=== PATIENT | female | born 1945 | race Caucasian/White ===

== ENCOUNTER → 2017-09-04 | Outpatient (CLI) | payer MEDICARE ==
[~2017-09-04] MED LIST: AMLODIPINE-BEN1 EAC1 PO; Aspirin EC81 MG PO; CEFP200 PO; DULO60 PO; GABA100 PO; HYDR1TAB94 PO; LISI5 PO; METO50 PO; Norco 5-325 Ta1 EACH PO; XARELTO20 MG PO; Zofran Odt4 MG SL
[2017-09-04 11:09] LABS: Anion Gap 6 mmol/L (6-16); Blood Urea Nitrogen 10 mg/dL (8-24); CO2, Blood 31 mmol/L (21-32); Chloride, Blood 104 mmol/L (98-108); Creatinine, Blood 0.77 mg/dL (0.40-1.00); Glomerular Filtration Rate >60 (60-); Glucose, Blood 109 mg/dL (70-99); Potassium, Blood 4.9 mmol/L (3.5-5.5); Sodium, Blood 141 mmol/L (136-145)
== END | disposition home or self-care (01) ==
LOC: LAB EV 10:58
PROVIDERS: Physician Assistant Medical
DX: I10 Essential (primary) hypertension (principal)
CPT/HCPCS: 80048

== ENCOUNTER 2018-05-17 18:53 | Emergency (ER) | payer MEDICARE ==
[~2018-05-17] VITALS: Ht 170.2 cm; Wt 112.5 kg
[~2018-05-17 18:53] MED LIST changes: -Aspirin EC81 MG PO; -GABA100 PO; -HYDR1TAB94 PO; -LISI5 PO; -METO50 PO; -XARELTO20 MG PO
[2018-05-17] MEDS ORDERED: GABA100 (20:20)
[2018-05-17 20:40] LABS: BASOPHILS ABSOLUTE AUTO 0.03 K/mm3 (0.00-0.23); BASOPHILS PERCENT AUTO 0 % (0-2); EOSINOPHILS ABSOLUTE AUTO 0.28 K/mm3 (0.00-0.68); EOSINOPHILS PERCENT AUTO 4 % (0-6); Hematocrit 43.3 % (33.0-51.0); Hemoglobin 14.1 g/dL (11.5-16.0); IMMATURE GRAN ABSOLUTE AUTO 0.02 K/mm3 (0.00-0.10); IMMATURE GRAN PERCENT AUTO 0 % (0-1); LYMPHOCYTES ABSOLUTE AUTO 3.24 K/mm3 (0.84-5.20); LYMPHOCYTES PERCENT AUTO 45 % (21-46); MONOCYTES ABSOLUTE AUTO 0.67 K/mm3 (0.16-1.47); MONOCYTES PERCENT AUTO 9 % (4-13); Mean Corpuscular HGB 27.5 pg (26.0-34.0); Mean Corpuscular HGB Conc 32.6 g/dL (31.5-36.5); Mean Corpuscular Volume 84 fL (80-100); NEUTROPHILS ABSOLUTE AUTO 3.03 K/mm3 (1.96-9.15); NEUTROPHILS PERCENT AUTO 42 % (41-73); RDW Coefficient Variation 14.4 % (11.7-14.2); RDW Standard Deviation 44.4 fL (35.1-46.3); Red Blood Cell Count 5.13 M/mm3 (3.80-5.20); White Blood Cell Count 7.27 K/mm3 (4.00-11.30)
[2018-05-17 20:43] LABS: Mean Platelet Volume 10.3 fL (9.1-12.4); Platelet Count 221 K/mm3 (150-400)
[2018-05-17 20:48] LABS: Alanine Aminotransfer (ALT/SGP 17 U/L (12-78); Albumin, Blood 3.3 g/dL (3.4-5.0); Albumin/Globulin Ratio 0.9 (0.8-1.8); Alk Phos 89 U/L (50-136); Anion Gap 9 mmol/L (6-16); Aspartate Aminotrans (AST/SGOT 17 U/L (12-37); Bilirubin, Total 0.3 mg/dL (0.1-1.0); Blood Urea Nitrogen 18 mg/dL (8-24); Bun/Creatinine Ratio 21.6 (12.0-20.0); CO2, Blood 26 mmol/L (21-32); Calcium, Blood 7.9 mg/dL (8.5-10.1); Chloride, Blood 108 mmol/L (98-108); Creatinine, Blood 0.83 mg/dL (0.40-1.00); Globulin, Blood 3.6 g/dL (2.2-4.0); Glomerular Filtration Rate >60 (60-); Glucose, Blood 104 mg/dL (70-99); Potassium, Blood 4.4 mmol/L (3.5-5.5); Sodium, Blood 143 mmol/L (136-145); Total Protein, Blood 6.9 g/dL (6.4-8.2)
[2018-05-17] MEDS ORDERED: HYDR1TAB94 PO (21:45)
[2018-05-17] MEDS ORDERED: Aspirin EC81 MG PO (21:45)
== END 2018-05-17 22:27 | disposition home or self-care (01) ==
LOC: ER 18:53
PROVIDERS: Emergency Medicine
DX: R47.01 Aphasia (principal); I10 Essential (primary) hypertension; E11.9 Type 2 diabetes mellitus without complications; Z79.899 Other long term (current) drug therapy
CPT/HCPCS: 36415; 70450; 80053; 81000; 85025; 93005; 93010; 96374; 96375; 99285-25; J2405; J3010

== ENCOUNTER 2018-05-26 02:25 | Observation (INO) | payer MEDICARE ==
[~2018-05-26] VITALS: Ht 170.2 cm; Wt 114.2 kg
[~2018-05-26 02:25] MED LIST changes: +Aspirin EC81 MG PO; +GABA100 PO; +HYDR1TAB94 PO
[2018-05-26] MEDS ORDERED: LISI5 PO (03:27)
[2018-05-26 04:42] LABS: BASOPHILS ABSOLUTE AUTO 0.04 K/mm3 (0.00-0.23); BASOPHILS PERCENT AUTO 1 % (0-2); EOSINOPHILS ABSOLUTE AUTO 0.26 K/mm3 (0.00-0.68); EOSINOPHILS PERCENT AUTO 3 % (0-6); Hematocrit 45.4 % (33.0-51.0); Hemoglobin 14.1 g/dL (11.5-16.0); IMMATURE GRAN ABSOLUTE AUTO 0.02 K/mm3 (0.00-0.10); IMMATURE GRAN PERCENT AUTO 0 % (0-1); LYMPHOCYTES ABSOLUTE AUTO 3.19 K/mm3 (0.84-5.20); LYMPHOCYTES PERCENT AUTO 42 % (21-46); MONOCYTES ABSOLUTE AUTO 0.75 K/mm3 (0.16-1.47); MONOCYTES PERCENT AUTO 10 % (4-13); Mean Corpuscular HGB 27.6 pg (26.0-34.0); Mean Corpuscular HGB Conc 31.1 g/dL (31.5-36.5); NEUTROPHILS ABSOLUTE AUTO 3.36 K/mm3 (1.96-9.15); NEUTROPHILS PERCENT AUTO 44 % (41-73); RDW Coefficient Variation 14.2 % (11.7-14.2); RDW Standard Deviation 46.4 fL (35.1-46.3); Red Blood Cell Count 5.11 M/mm3 (3.80-5.20); White Blood Cell Count 7.62 K/mm3 (4.00-11.30)
[2018-05-26 04:44] LABS: Mean Corpuscular Volume 89 fL (80-100); Platelet Count 187 K/mm3 (150-400)
[2018-05-26 04:56] LABS: Source, Urine Clean Catch
[2018-05-26 05:14] LABS: Bilirubin, Urine Neg (Neg); Blood, Urine Neg (Neg); Glucose Qualitative, Urine Neg (Neg); Ketones, Urine Neg (Neg); Leukocyte Esterase, Urine Neg (Neg); Nitrite, Urine Neg (Neg); Protein, Urine Neg (Neg); Specific Gravity, Urine 1.005 (1.003-1.022); Urobilinogen, Urine NORM (Normal)
[2018-05-26 05:15] LABS: Alanine Aminotransfer (ALT/SGP 19 U/L (12-78); Albumin, Blood 3.7 g/dL (3.4-5.0); Alk Phos 85 U/L (50-136); Anion Gap 8 mmol/L (6-16); Aspartate Aminotrans (AST/SGOT 18 U/L (12-37); Bilirubin, Total 0.4 mg/dL (0.1-1.0); Blood Urea Nitrogen 15 mg/dL (8-24); Bun/Creatinine Ratio 22.5 (12.0-20.0); CO2, Blood 27 mmol/L (21-32); Calcium, Blood 8.8 mg/dL (8.5-10.1); Chloride, Blood 106 mmol/L (98-108); Creatinine, Blood 0.67 mg/dL (0.40-1.00); Globulin, Blood 3.7 g/dL (2.2-4.0); Glomerular Filtration Rate >60 (60-); Glucose, Blood 94 mg/dL (70-99); Potassium, Blood 4.3 mmol/L (3.5-5.5); Sodium, Blood 141 mmol/L (136-145); Total Protein, Blood 7.4 g/dL (6.4-8.2)
[2018-05-26 05:44] LABS: Appearance, Urine Clear (Clear); Color, Urine Yellow (P-Yellow)
[2018-05-26 08:28] LABS: Free Thyroxine 1.12 ng/dL (0.70-1.60)
[2018-05-26 08:30] LABS: Thyroid Stimulating Hormone 4.27 uIU/mL (0.360-4.800); Triiodothyronine, Free 3.15 pg/mL (2.18-3.98)
[2018-05-27 04:39] LABS: Hematocrit 42.1 % (33.0-51.0); Hemoglobin 13.4 g/dL (11.5-16.0); Mean Corpuscular HGB 27.5 pg (26.0-34.0); Mean Corpuscular HGB Conc 31.8 g/dL (31.5-36.5); Mean Platelet Volume 10.2 fL (9.1-12.4); Platelet Count 227 K/mm3 (150-400); RDW Coefficient Variation 14.7 % (11.7-14.2); RDW Standard Deviation 46.9 fL (35.1-46.3); Red Blood Cell Count 4.87 M/mm3 (3.80-5.20); White Blood Cell Count 7.49 K/mm3 (4.00-11.30)
[2018-05-27 04:42] LABS: Mean Corpuscular Volume 86 fL (80-100)
[2018-05-27 04:58] LABS: Alanine Aminotransfer (ALT/SGP 15 U/L (12-78); Albumin, Blood 2.9 g/dL (3.4-5.0); Albumin/Globulin Ratio 0.9 (0.8-1.8); Alk Phos 75 U/L (50-136); Anion Gap 7 mmol/L (6-16); Aspartate Aminotrans (AST/SGOT 10 U/L (12-37); Bilirubin, Total 0.4 mg/dL (0.1-1.0); Blood Urea Nitrogen 18 mg/dL (8-24); Bun/Creatinine Ratio 21.5 (12.0-20.0); CHOL/HDL RATIO 2.5; CO2, Blood 28 mmol/L (21-32); Calcium, Blood 8.1 mg/dL (8.5-10.1); Chloride, Blood 108 mmol/L (98-108); Cholesterol 186 mg/dL (50-200); Creatinine, Blood 0.84 mg/dL (0.40-1.00); Globulin, Blood 3.1 g/dL (2.2-4.0); Glomerular Filtration Rate >60 (60-); Glucose, Blood 101 mg/dL (70-99); HDL Cholesterol 73 mg/dL (>39); LDL/HDL RATIO 1.4; Low Density Lipoprotein Chol 99 mg/dL (0-110); Potassium, Blood 4.1 mmol/L (3.5-5.5); Sodium, Blood 143 mmol/L (136-145); Triglycerides 68 mg/dL (30-160); Very Low Density Lipoprot Chol 13 mg/dL (6-32)
[2018-05-27] MEDS ORDERED: METO50 PO (10:09)
[2018-05-27] MEDS ORDERED: XARELTO20 MG PO (10:09)
== END 2018-05-27 10:47 | disposition home or self-care (01) ==
LOC: ER 02:25 → PCU 02:26
PROVIDERS: Emergency Medicine; Family Medicine; Internal Medicine
DX: I16.1 Hypertensive emergency (principal); I63.9 Cerebral infarction, unspecified; E11.9 Type 2 diabetes mellitus without complications; I10 Essential (primary) hypertension; I48.91 Unspecified atrial fibrillation; E66.9 Obesity, unspecified; G47.33 Obstructive sleep apnea (adult) (pediatric); Z79.02 Long term (current) use of antithrombotics/antiplatelets; Z79.82 Long term (current) use of aspirin; Z99.89 Dependence on other enabling machines and devices
CPT/HCPCS: 36415; 70551; 80053; 80061; 81003; 84439; 84443; 84481; 85025; 85027; 93005; 93010; 93306; 93880; 96372; 96374; 96375; 96376; 99284-25; G0378; J0360; J1650; J2060; J2405

== ENCOUNTER 2019-02-26 02:40 | Emergency (ER) | payer MEDICARE, OTHER ==
[~2019-02-26] VITALS: Ht 170.2 cm; Wt 117.9 kg
[~2019-02-26 02:40] MED LIST changes: +LISI5 PO; +METO50 PO; +XARELTO20 MG PO
[2019-02-26] MEDS ORDERED: WARF2.5 PO (03:03)
[2019-02-26] MEDS ORDERED: Coumadin5 MG PO (03:03)
[2019-02-26] MEDS ORDERED: ZESTORETIC 20-121 EA PO (03:04)
[2019-02-26 04:30] LABS: International Normalized Ratio 2.79; Prothrombin Time Results 26.9 Sec (9.7-11.5)
[2019-02-26] MEDS ORDERED: CEPH500 PO (04:35)
[2019-02-26] MEDS ORDERED: ERYT1OIN BOTHEYES (04:35)
== END 2019-02-26 04:50 | disposition home or self-care (01) ==
LOC: ER 02:40
PROVIDERS: Emergency Medicine
DX: A46 Erysipelas (principal); H10.9 Unspecified conjunctivitis; I10 Essential (primary) hypertension; E11.9 Type 2 diabetes mellitus without complications; Z79.899 Other long term (current) drug therapy
CPT/HCPCS: 36415; 85610; 99283

== ENCOUNTER → 2019-04-03 | Outpatient (CLI) | payer MEDICARE, OTHER ==
[~2019-04-03] MED LIST changes: +CEPH500 PO; +Coumadin5 MG PO; +ERYT1OIN BOTHEYES; +WARF2.5 PO; +ZESTORETIC 20-121 EA PO
== END | disposition home or self-care (01) ==
LOC: LAB SHORT 11:44 → LAB 11:44
DX: R35.0 Frequency of micturition (principal)
CPT/HCPCS: 87077; 87086; 87186

== ENCOUNTER 2020-05-05 18:20 | Emergency (ER) | payer MEDICARE ==
[~2020-05-05] VITALS: Ht 170.2 cm; Wt 117.9 kg
[2020-05-05 19:10] LABS: BASOPHILS ABSOLUTE AUTO 0.03 K/mm3 (0.00-0.23); BASOPHILS PERCENT AUTO 0 % (0-2); EOSINOPHILS ABSOLUTE AUTO 0.27 K/mm3 (0.00-0.68); EOSINOPHILS PERCENT AUTO 3 % (0-6); Hematocrit 45.2 % (33.0-51.0); Hemoglobin 14.3 g/dL (11.5-16.0); IMMATURE GRAN ABSOLUTE AUTO 0.03 K/mm3 (0.00-0.10); IMMATURE GRAN PERCENT AUTO 0 % (0-1); LYMPHOCYTES PERCENT AUTO 42 % (21-46); MONOCYTES ABSOLUTE AUTO 0.78 K/mm3 (0.16-1.47); MONOCYTES PERCENT AUTO 8 % (4-13); Mean Corpuscular HGB 27.6 pg (26.0-34.0); Mean Corpuscular HGB Conc 31.6 g/dL (31.5-36.5); Mean Corpuscular Volume 87 fL (80-100); Mean Platelet Volume 10.1 fL (9.1-12.4); NEUTROPHILS ABSOLUTE AUTO 4.26 K/mm3 (1.96-9.15); NEUTROPHILS PERCENT AUTO 46 % (41-73); Platelet Count 274 K/mm3 (150-400); RDW Coefficient Variation 13.7 % (11.7-14.2); RDW Standard Deviation 44.2 fL (35.1-46.3); Red Blood Cell Count 5.18 M/mm3 (3.80-5.20); White Blood Cell Count 9.27 K/mm3 (4.00-11.30)
[2020-05-05 19:23] LABS: Alanine Aminotransfer (ALT/SGP 22 U/L (12-78); Albumin, Blood 3.4 g/dL (3.4-5.0); Albumin/Globulin Ratio 0.9 (0.8-1.8); Alk Phos 95 U/L (50-136); Anion Gap 7 mmol/L (6-16); Aspartate Aminotrans (AST/SGOT 17 U/L (12-37); Bilirubin, Total 0.2 mg/dL (0.1-1.0); Blood Urea Nitrogen 14 mg/dL (8-24); Bun/Creatinine Ratio 18.7 (12.0-20.0); CO2, Blood 28 mmol/L (21-32); Calcium, Blood 8.9 mg/dL (8.5-10.1); Chloride, Blood 102 mmol/L (98-108); Creatinine, Blood 0.75 mg/dL (0.40-1.00); Globulin, Blood 3.9 g/dL (2.2-4.0); Glomerular Filtration Rate >60 (60-); Glucose, Blood 108 mg/dL (70-99); Potassium, Blood 4.1 mmol/L (3.5-5.5); Sodium, Blood 137 mmol/L (136-145); Total Protein, Blood 7.3 g/dL (6.4-8.2)
== END 2020-05-05 22:31 | disposition home or self-care (01) ==
LOC: ER 18:20
PROVIDERS: Emergency Medicine
DX: I10 Essential (primary) hypertension (principal); E11.9 Type 2 diabetes mellitus without complications; Z79.01 Long term (current) use of anticoagulants; Z79.899 Other long term (current) drug therapy; Z86.73 Personal history of transient ischemic attack (TIA), and cerebral infarction without residual deficits
CPT/HCPCS: 36415; 70450; 80053; 85025; 93005; 93010; 96374; 96375; 99285-25; A9270-GY; J2405

== ENCOUNTER 2022-05-19 08:52 | Emergency (ER) | payer MEDICARE ==
[~2022-05-19] VITALS: Ht 172.7 cm; Wt 113.4 kg
[2022-05-19 09:47] LABS: BASOPHILS ABSOLUTE AUTO 0.03 K/mm3 (0.00-0.23); BASOPHILS PERCENT AUTO 0 % (0-2); EOSINOPHILS ABSOLUTE AUTO 0.21 K/mm3 (0.00-0.68); EOSINOPHILS PERCENT AUTO 3 % (0-6); Hematocrit 45.1 % (33.0-51.0); Hemoglobin 14.6 g/dL (11.5-16.0); IMMATURE GRAN ABSOLUTE AUTO 0.03 K/mm3 (0.00-0.10); IMMATURE GRAN PERCENT AUTO 0 % (0-1); LYMPHOCYTES ABSOLUTE AUTO 2.76 K/mm3 (0.84-5.20); LYMPHOCYTES PERCENT AUTO 34 % (21-46); MONOCYTES ABSOLUTE AUTO 0.86 K/mm3 (0.16-1.47); MONOCYTES PERCENT AUTO 11 % (4-13); Mean Corpuscular HGB 28.7 pg (26.0-34.0); Mean Corpuscular HGB Conc 32.4 g/dL (31.5-36.5); Mean Corpuscular Volume 89 fL (80-100); Mean Platelet Volume 9.7 fL (9.1-12.4); NEUTROPHILS ABSOLUTE AUTO 4.32 K/mm3 (1.96-9.15); NEUTROPHILS PERCENT AUTO 53 % (41-73); Platelet Count 271 K/mm3 (150-400); RDW Coefficient Variation 13.7 % (11.7-14.2); RDW Standard Deviation 44.1 fL (35.1-46.3); Red Blood Cell Count 5.09 M/mm3 (3.80-5.20); White Blood Cell Count 8.21 K/mm3 (4.00-11.30)
[2022-05-19 10:01] LABS: Albumin, Blood 3.3 g/dL (3.4-5.0); Albumin/Globulin Ratio 0.8 (0.8-1.8); Bilirubin, Total 0.5 mg/dL (0.1-1.0); Bun/Creatinine Ratio 26.1 (12.0-20.0); Calcium, Blood 8.8 mg/dL (8.5-10.1); Creatinine, Blood 0.92 mg/dL (0.40-1.00); Globulin, Blood 3.9 g/dL (2.2-4.0); Potassium, Blood 4.4 mmol/L (3.5-5.5); Total Protein, Blood 7.2 g/dL (6.4-8.2)
[2022-05-19] MEDS ORDERED: LISI20 PO (10:38)
[2022-05-19 13:45] LABS: International Normalized Ratio 2.08; Prothrombin Time Results 20.8 Sec (9.7-11.5)
== END 2022-05-19 14:53 | disposition home or self-care (01) ==
LOC: ER 08:52
PROVIDERS: Emergency Medicine; Student in an Organized Health Care Education/Training Program
DX: R07.9 Chest pain, unspecified (principal); I10 Essential (primary) hypertension; E11.9 Type 2 diabetes mellitus without complications; Z79.899 Other long term (current) drug therapy; Z79.01 Long term (current) use of anticoagulants; Z86.73 Personal history of transient ischemic attack (TIA), and cerebral infarction without residual deficits
CPT/HCPCS: 36415; 71046; 80053; 84484; 85025; 85610; 93005; 93010; A9270; J3010

== ENCOUNTER → 2022-09-19 | Outpatient (CLI) | payer MEDICARE ==
[~2022-09-19] MED LIST changes: +LISI20 PO
[2022-09-19 13:30] LABS: BASOPHILS ABSOLUTE AUTO 0.02 K/mm3 (0.00-0.23); BASOPHILS PERCENT AUTO 0 % (0-2); EOSINOPHILS ABSOLUTE AUTO 0.15 K/mm3 (0.00-0.68); EOSINOPHILS PERCENT AUTO 2 % (0-6); Hematocrit 45.3 % (33.0-51.0); Hemoglobin 14.8 g/dL (11.5-16.0); IMMATURE GRAN ABSOLUTE AUTO 0.02 K/mm3 (0.00-0.10); IMMATURE GRAN PERCENT AUTO 0 % (0-1); LYMPHOCYTES PERCENT AUTO 26 % (21-46); MONOCYTES ABSOLUTE AUTO 0.74 K/mm3 (0.16-1.47); MONOCYTES PERCENT AUTO 10 % (4-13); Mean Corpuscular HGB 28.2 pg (26.0-34.0); Mean Corpuscular HGB Conc 32.7 g/dL (31.5-36.5); Mean Corpuscular Volume 86 fL (80-100); Mean Platelet Volume 10.4 fL (9.1-12.4); NEUTROPHILS ABSOLUTE AUTO 4.66 K/mm3 (1.96-9.15); NEUTROPHILS PERCENT AUTO 61 % (41-73); Platelet Count 244 K/mm3 (150-400); RDW Coefficient Variation 13.8 % (11.7-14.2); RDW Standard Deviation 44.1 fL (35.1-46.3); Red Blood Cell Count 5.25 M/mm3 (3.80-5.20); White Blood Cell Count 7.59 K/mm3 (4.00-11.30)
[2022-09-19 19:00] LABS: Albumin, Blood 3.1 g/dL (3.4-5.0); Albumin/Globulin Ratio 0.8 (0.8-1.8); Bilirubin, Total 0.2 mg/dL (0.1-1.0); Bun/Creatinine Ratio 19.9 (12.0-20.0); Calcium, Blood 8.3 mg/dL (8.5-10.1); Creatinine, Blood 0.86 mg/dL (0.40-1.00); Globulin, Blood 3.7 g/dL (2.2-4.0); Potassium, Blood 3.6 mmol/L (3.5-5.5); Total Protein, Blood 6.8 g/dL (6.4-8.2)
== END | disposition home or self-care (01) ==
LOC: LAB SHORT 10:40
PROVIDERS: Nurse Practitioner Family
DX: N19 Unspecified kidney failure (principal); R30.0 Dysuria; R10.9 Unspecified abdominal pain
CPT/HCPCS: 36415; 80053; 85025; 87086

== ENCOUNTER 2022-11-26 08:57 | Emergency (ER) | payer MEDICARE ==
[~2022-11-26] VITALS: Ht 167.6 cm; Wt 117.9 kg
[~2022-11-26 08:57] MED LIST changes: -Coumadin5 MG PO; +WARF5 PO
[2022-11-26 10:08] LABS: BASOPHILS ABSOLUTE AUTO 0.02 K/mm3 (0.00-0.23); BASOPHILS PERCENT AUTO 0 % (0-2); EOSINOPHILS ABSOLUTE AUTO 0.19 K/mm3 (0.00-0.68); EOSINOPHILS PERCENT AUTO 3 % (0-6); Hematocrit 44.5 % (33.0-51.0); IMMATURE GRAN ABSOLUTE AUTO 0.02 K/mm3 (0.00-0.10); IMMATURE GRAN PERCENT AUTO 0 % (0-1); LYMPHOCYTES ABSOLUTE AUTO 2.33 K/mm3 (0.84-5.20); LYMPHOCYTES PERCENT AUTO 38 % (21-46); MONOCYTES ABSOLUTE AUTO 0.66 K/mm3 (0.16-1.47); MONOCYTES PERCENT AUTO 11 % (4-13); Mean Corpuscular HGB 27.7 pg (26.0-34.0); Mean Corpuscular HGB Conc 31.5 g/dL (31.5-36.5); Mean Corpuscular Volume 88 fL (80-100); Mean Platelet Volume 9.9 fL (9.1-12.4); NEUTROPHILS ABSOLUTE AUTO 2.98 K/mm3 (1.96-9.15); NEUTROPHILS PERCENT AUTO 48 % (41-73); Platelet Count 235 K/mm3 (150-400); RDW Coefficient Variation 14.4 % (11.7-14.2); RDW Standard Deviation 46.2 fL (35.1-46.3); Red Blood Cell Count 5.06 M/mm3 (3.80-5.20)
[2022-11-26 10:09] LABS: Base Excess Venous 7.1 mmol/L; Bicarbonate Venous 28.8 mmol/L (24.0-30.0); PCO2 Venous 55.5 mmHg (38-42); pH Blood Venous 7.37 (7.34-7.37)
[2022-11-26 10:22] LABS: International Normalized Ratio 2.6; Prothrombin Time Results 25.6 Sec (9.7-11.5)
[2022-11-26 10:46] LABS: Albumin, Blood 3.1 g/dL (3.4-5.0); Albumin/Globulin Ratio 0.8 (0.8-1.8); Bilirubin, Total 0.3 mg/dL (0.1-1.0); Bun/Creatinine Ratio 24.6 (12.0-20.0); Calcium, Blood 8.7 mg/dL (8.5-10.1); Creatinine, Blood 0.77 mg/dL (0.40-1.00); Globulin, Blood 3.9 g/dL (2.2-4.0); Potassium, Blood 4.4 mmol/L (3.5-5.5)
[2022-11-26 11:16] LABS: Influenza A, PCR NEGATIVE (NEGATIVE); Influenza B, PCR NEGATIVE (NEGATIVE); Resp Syncytial Virus, PCR NEGATIVE (NEGATIVE); SARS-Cov-2 (COVID-19) PCR, MMC NEGATIVE (NEGATIVE)
== END 2022-11-26 14:05 | disposition home or self-care (01) ==
LOC: ER 08:57
PROVIDERS: Emergency Medicine
DX: R20.2 Paresthesia of skin (principal); I10 Essential (primary) hypertension; E11.9 Type 2 diabetes mellitus without complications; Z79.01 Long term (current) use of anticoagulants; Z79.899 Other long term (current) drug therapy; Z86.73 Personal history of transient ischemic attack (TIA), and cerebral infarction without residual deficits
CPT/HCPCS: 0241U; 70450; 70551; 71045; 80053; 82803; 83880; 84484; 85025; 85610; 93005; 93010; A9270; J0360; J2060

== ENCOUNTER 2023-09-10 11:39 | Emergency (ER) | payer MEDICARE ==
[~2023-09-10] VITALS: Ht 172.7 cm; Wt 115.7 kg
[2023-09-10 12:59] LABS: BASOPHILS ABSOLUTE AUTO 0.03 K/mm3 (0.00-0.23); BASOPHILS PERCENT AUTO 0 % (0-2); EOSINOPHILS ABSOLUTE AUTO 0.04 K/mm3 (0.00-0.68); EOSINOPHILS PERCENT AUTO 0 % (0-6); Hematocrit 43.9 % (33.0-51.0); Hemoglobin 14.2 g/dL (11.5-16.0); IMMATURE GRAN ABSOLUTE AUTO 0.06 K/mm3 (0.00-0.10); IMMATURE GRAN PERCENT AUTO 1 % (0-1); LYMPHOCYTES ABSOLUTE AUTO 1.43 K/mm3 (0.84-5.20); LYMPHOCYTES PERCENT AUTO 14 % (21-46); MONOCYTES ABSOLUTE AUTO 1.08 K/mm3 (0.16-1.47); MONOCYTES PERCENT AUTO 10 % (4-13); Mean Corpuscular HGB Conc 32.3 g/dL (31.5-36.5); Mean Corpuscular Volume 87 fL (80-100); Mean Platelet Volume 9.8 fL (9.1-12.4); NEUTROPHILS ABSOLUTE AUTO 7.96 K/mm3 (1.96-9.15); NEUTROPHILS PERCENT AUTO 75 % (41-73); Platelet Count 295 K/mm3 (150-400); RDW Coefficient Variation 14.9 % (11.7-14.2); RDW Standard Deviation 47.2 fL (35.1-46.3); Red Blood Cell Count 5.07 M/mm3 (3.80-5.20)
[2023-09-10 13:11] LABS: Albumin, Blood 3.1 g/dL (3.4-5.0); Albumin/Globulin Ratio 0.7 (0.8-1.8); Bilirubin, Total 0.6 mg/dL (0.1-1.0); Calcium, Blood 9.1 mg/dL (8.5-10.1); Creatinine, Blood 1.33 mg/dL (0.40-1.00); Globulin, Blood 4.4 g/dL (2.2-4.0); Potassium, Blood 4.2 mmol/L (3.5-5.5); Total Protein, Blood 7.5 g/dL (6.4-8.2)
[2023-09-10] MEDS ORDERED: CITALOPRAM HBR10 MG PO (14:44)
[2023-09-10 15:15] VITALS: BP 131/59
[2023-09-10] MEDS ORDERED: CEFD300 PO (15:30)
== END 2023-09-10 16:28 | disposition home or self-care (01) ==
LOC: ER 11:39
PROVIDERS: Student in an Organized Health Care Education/Training Program
DX: N39.0 Urinary tract infection, site not specified (principal); R53.1 Weakness; Z91.81 History of falling; I12.9 Hypertensive chronic kidney disease with stage 1 through stage 4 chronic kidney disease, or unspecified chronic kidney disease; E11.22 Type 2 diabetes mellitus with diabetic chronic kidney disease; N18.9 Chronic kidney disease, unspecified; I48.91 Unspecified atrial fibrillation; Z79.01 Long term (current) use of anticoagulants; Z79.899 Other long term (current) drug therapy
CPT/HCPCS: 51701; 70450; 71046; 80053; 85025; 93005; 93010; 96365; 99285-25; J0696

== ENCOUNTER → 2023-12-30 | Outpatient (CLI) | payer MEDICARE ==
[~2023-12-30] MED LIST changes: +CEFD300 PO; +CITALOPRAM HBR10 MG PO
== END ==
LOC: LAB SHORT 11:41 → LAB 11:41
DX: R39.9 Unspecified symptoms and signs involving the genitourinary system (principal)
CPT/HCPCS: 87077; 87086; 87186

== ENCOUNTER 2024-03-24 11:25 | Emergency (ER) | payer MEDICARE ==
[~2024-03-24] VITALS: Ht 172.7 cm; Wt 118.8 kg
[2024-03-24 11:27] VITALS: BP 154/73
[2024-03-24 13:59] LABS: BASOPHILS ABSOLUTE AUTO 0.03 K/mm3 (0.00-0.23); BASOPHILS PERCENT AUTO 0 % (0-2); EOSINOPHILS ABSOLUTE AUTO 0.26 K/mm3 (0.00-0.68); EOSINOPHILS PERCENT AUTO 4 % (0-6); Hematocrit 38.5 % (33.0-51.0); Hemoglobin 12.5 g/dL (11.5-16.0); IMMATURE GRAN ABSOLUTE AUTO 0.01 K/mm3 (0.00-0.10); IMMATURE GRAN PERCENT AUTO 0 % (0-1); LYMPHOCYTES ABSOLUTE AUTO 2.03 K/mm3 (0.84-5.20); LYMPHOCYTES PERCENT AUTO 28 % (21-46); MONOCYTES ABSOLUTE AUTO 0.82 K/mm3 (0.16-1.47); MONOCYTES PERCENT AUTO 11 % (4-13); Mean Corpuscular HGB Conc 32.5 g/dL (31.5-36.5); Mean Corpuscular Volume 86 fL (80-100); Mean Platelet Volume 9.5 fL (9.1-12.4); NEUTROPHILS PERCENT AUTO 57 % (41-73); Platelet Count 271 K/mm3 (150-400); RDW Coefficient Variation 14.2 % (11.7-14.2); Red Blood Cell Count 4.47 M/mm3 (3.80-5.20); White Blood Cell Count 7.35 K/mm3 (4.00-11.30)
[2024-03-24 14:12] LABS: International Normalized Ratio 1.14; Prothrombin Time Results 12.1 Sec (9.7-11.5)
[2024-03-24 14:24] LABS: Albumin, Blood 3.1 g/dL (3.4-5.0); Albumin/Globulin Ratio 0.9 (0.8-1.8); Bilirubin, Total 0.3 mg/dL (0.1-1.0); Bun/Creatinine Ratio 12.5 (12.0-20.0); Calcium, Blood 8.4 mg/dL (8.5-10.1); Creatinine, Blood 1.04 mg/dL (0.40-1.00); Globulin, Blood 3.6 g/dL (2.2-4.0); Total Protein, Blood 6.7 g/dL (6.4-8.2)
== END 2024-03-24 14:25 | disposition home or self-care (01) ==
LOC: ER 11:25
PROVIDERS: Physician Assistant
DX: I73.00 Raynaud's syndrome without gangrene (principal); I10 Essential (primary) hypertension; E11.9 Type 2 diabetes mellitus without complications; Z86.73 Personal history of transient ischemic attack (TIA), and cerebral infarction without residual deficits; Z79.899 Other long term (current) drug therapy
CPT/HCPCS: 80053; 85025; 85610; 85730; 93931; 99284-25

== ENCOUNTER 2024-05-20 10:08 | Day surgery (SDC) | payer MEDICARE ==
[~2024-05-20] VITALS: Ht 165.1 cm; Wt 97.9 kg
[~2024-05-20 10:08] MED LIST changes: +Lidocaine 2%-Epineph 1:100000 20 ML MDV ONE
[2024-05-20] MEDS ORDERED: Lactated Ringer's 1,000 ML IV ONE (10:24)
[2024-05-20] MEDS ORDERED: XARELTO10 M1 PO (10:41)
[2024-05-20] MEDS ORDERED: Metoprolol Tartrate 25 MG Tab ONE (10:52)
[2024-05-20] MEDS ORDERED: Midazolam HCl 1MG / ML 2ML Vial ONE (11:38)
[2024-05-20] MEDS ORDERED: Lidocaine 2%-Epineph 1:100000 20 ML MDV INJ ONE (11:40)
[2024-05-20] MEDS ORDERED: HydrALAZINE HCl 20 MG / ML 1ML Vial ONE (11:56)
[2024-05-20 12:17] VITALS: BP 173/63
--- NOTE | 2024-05-20 12:21 | NUR ---
05/20/24 1221 Dionne Mulligan IN TO PRE OP ROOM. SONOSITE LOCALIZATION INJECTION TO LEFT ARM WITH 10 CC LIDO 2% WITH EPI 1:100,000 PER ORDERS. PT TOLERATED WELL, O2 SATS MAINTAINED ON ROOM AIR.
== END 2024-05-20 12:59 | disposition home or self-care (01) ==
LOC: ORSCSDS 10:08
PROVIDERS: Orthopaedic Surgery
PROC: 01N54ZZ Release Median Nerve, Percutaneous Endoscopic Approach (ICD-10-PCS; principal; 2024-05-20 12:10)
DX: G56.03 Carpal tunnel syndrome, bilateral upper limbs (principal); I48.91 Unspecified atrial fibrillation; I10 Essential (primary) hypertension; Z86.73 Personal history of transient ischemic attack (TIA), and cerebral infarction without residual deficits; E11.9 Type 2 diabetes mellitus without complications; E66.9 Obesity, unspecified; Z68.42 Body mass index [BMI] 45.0-49.9, adult; Z79.01 Long term (current) use of anticoagulants; Z79.899 Other long term (current) drug therapy
CPT/HCPCS: 82947; A9270; J0360; J2250

== ENCOUNTER 2025-05-12 08:15 | Emergency (ER) | payer MEDICARE ==
[~2025-05-12] VITALS: Ht 170.2 cm; Wt 104.3 kg
[~2025-05-12 08:15] MED LIST changes: -Lidocaine 2%-Epineph 1:100000 20 ML MDV ONE; +XARELTO10 M1 PO
[2025-05-12] MEDS ORDERED: Ketorolac Tromethamine 15mg Vial IV ONE (08:35)
[2025-05-12] MEDS ORDERED: GABAPENTIN600 MG PO (08:45)
[2025-05-12] MEDS ORDERED: LISINOPRIL-HCT1 EACH PO (08:45)
[2025-05-12] MEDS ORDERED: Tambocor100 MG PO (08:45)
[2025-05-12] MEDS ORDERED: DULO30 PO (08:46)
[2025-05-12] MEDS ORDERED: HYDROcodone 5-APAP 325 TAB PO ONE (08:50)
[2025-05-12 10:00] VITALS: BP 164/76
[2025-05-12 10:22] LABS: BASOPHILS ABSOLUTE AUTO 0.02 K/mm3 (0.00-0.23); BASOPHILS PERCENT AUTO 0 % (0-2); EOSINOPHILS ABSOLUTE AUTO 0.16 K/mm3 (0.00-0.68); EOSINOPHILS PERCENT AUTO 2 % (0-6); Hematocrit 39.8 % (33.0-51.0); Hemoglobin 12.7 g/dL (11.5-16.0); IMMATURE GRAN ABSOLUTE AUTO 0.02 K/mm3 (0.00-0.10); IMMATURE GRAN PERCENT AUTO 0 % (0-1); LYMPHOCYTES ABSOLUTE AUTO 1.60 K/mm3 (0.84-5.20); LYMPHOCYTES PERCENT AUTO 21 % (21-46); MONOCYTES ABSOLUTE AUTO 0.78 K/mm3 (0.16-1.47); MONOCYTES PERCENT AUTO 10 % (4-13); Mean Corpuscular HGB Conc 31.9 g/dL (31.5-36.5); Mean Corpuscular Volume 89 fL (80-100); NEUTROPHILS ABSOLUTE AUTO 5.20 K/mm3 (1.96-9.15); NEUTROPHILS PERCENT AUTO 67 % (41-73); NRBC ABSOLUTE 0.00 K/mm3 (0.00-0.02); NRBC Auto 0.0 /100 WBC (0.0-0.2); Platelet Count 218 K/mm3 (150-400); RDW Coefficient Variation 13.8 % (11.7-14.2); RDW Standard Deviation 44.7 fL (35.1-46.3)
[2025-05-12] MEDS ORDERED: Ketorolac Tromethamine 15mg Vial IM ONE (10:35)
[2025-05-12 10:42] LABS: Alanine Aminotransfer (ALT/SGP 13.0 U/L (12-78); Albumin, Blood 3.0 g/dL (3.4-5.0); Albumin/Globulin Ratio 0.9 (0.8-1.8); Anion Gap 8.0 mmol/L (3-11); Aspartate Aminotrans (AST/SGOT 14.0 U/L (12-37); Bilirubin, Total 0.5 mg/dL (0.1-1.0); Blood Urea Nitrogen 14.0 mg/dL (8-24); CO2, Blood 31.0 mmol/L (21-32); Calcium, Blood 8.6 mg/dL (8.5-10.1); Chloride, Blood 100.0 mmol/L (98-108); Creatinine, Blood 0.97 mg/dL (0.40-1.00); Globulin, Blood 3.5 g/dL (2.2-4.0); Glucose, Blood 99.0 mg/dL (70-99); Potassium, Blood 4.2 mmol/L (3.5-5.5); Sodium, Blood 135.0 mmol/L (136-145); Total Protein, Blood 6.5 g/dL (6.4-8.2)
[2025-05-12] MEDS ORDERED: CEPH500 PO (11:08)
[2025-05-12] MEDS ORDERED: Prednisone20 MG PO (11:08)
== END 2025-05-12 11:32 | disposition home or self-care (01) ==
LOC: ER 08:15
PROVIDERS: Physician Assistant
DX: L03.114 Cellulitis of left upper limb (principal); Z86.73 Personal history of transient ischemic attack (TIA), and cerebral infarction without residual deficits; I10 Essential (primary) hypertension; Z79.899 Other long term (current) drug therapy
CPT/HCPCS: 73110; 80053; 85025; 85651; 96372; 99283-25; A9270; J1885

== ENCOUNTER 2025-05-19 20:42 | Emergency (ER) | payer MEDICARE ==
[~2025-05-19] VITALS: Ht 172.7 cm; Wt 108.9 kg
[~2025-05-19 20:42] MED LIST changes: +DULO30 PO; +GABAPENTIN600 MG PO; +LISINOPRIL-HCT1 EACH PO; +Prednisone20 MG PO; +Tambocor100 MG PO
[2025-05-19 20:49] VITALS: BP 192/69
[2025-05-19] MEDS ORDERED: Dexamethasone Sod Phos 10 MG/ML 1ML VIAL PO ONE (21:00)
== END 2025-05-19 21:41 | disposition home or self-care (01) ==
LOC: ER 20:42
DX: L27.0 Generalized skin eruption due to drugs and medicaments taken internally (principal); I12.9 Hypertensive chronic kidney disease with stage 1 through stage 4 chronic kidney disease, or unspecified chronic kidney disease; E11.22 Type 2 diabetes mellitus with diabetic chronic kidney disease; N18.9 Chronic kidney disease, unspecified; I48.91 Unspecified atrial fibrillation; Z79.899 Other long term (current) drug therapy; Z79.01 Long term (current) use of anticoagulants
CPT/HCPCS: 99282; A9270; J1100